=== PATIENT | female | born 1995 | race Hispanic/Latino ===

== ENCOUNTER 2019-10-01 05:45 | Day surgery (SDC) | payer BC ==
[~2019-10-01] VITALS: Ht 154.9 cm; Wt 74.4 kg
[2019-10-01] MEDS ORDERED: TYLENOL EXTRA500 MG PO (09:10)
[2019-10-01] MEDS ORDERED: IBUPROFEN600 MG PO (09:10)
[2019-10-01] MEDS ORDERED: OXYCODON-ACETA1 EAC2 PO (09:10)
[2019-10-01] MEDS ORDERED: ZOFRAN4 MG PO (09:11)
--- NOTE | 2019-10-02 09:14 | OR ---
[facility] [address], [place] [address] Signed DATE OF OPERATION: 10/01/2019 SURGEON: Latosha Gruber MD PREOPERATIVE DIAGNOSES: 1. Chronic acalculous cholecystitis (CCK HIDA 0% ejection fraction with symptoms. 2. Benign-appearing liver lesions. POSTOPERATIVE DIAGNOSES: 1. Chronic inflammation of gallbladder with cholesterolosis and adherent cholesterol polyp. 2. No visible lesion of liver to allow for biopsy. PROCEDURE: 1. Laparoscopic cholecystectomy with intraoperative cholangiogram. 2. Surgeon-directed fluoroscopy. ANESTHESIA: General endotracheal, Latosha Ruiz CRNA and local 10 mL of 0.25% Marcaine with epinephrine. INDICATION: This 23-year-old woman is a patient of LILLIAN Killian in [place], [place]. The patient lives in [place], [place]. She was having problems of persistent nausea and decreased appetite and liver enzymes are somewhat elevated on September 03, 2019. She underwent an MRI of the abdomen following an ultrasound which showed no sign of gallstones in the gallbladder. The MRI demonstrated several liver lesions, which were not consistent with hemangioma. The patient used control pills only briefly at age 17 and is not on control pills now. The possibility of hepatic adenoma or other benign liver lesion has been considered. She has no prior history of cancer. Her symptoms are most likely related to her gallbladder and a CCK-HIDA test showed 0% ejection fraction with reproduction of her symptoms. The liver lesions are likely benign, but of uncertain etiology. She is admitted at this time to undergo laparoscopy for cholecystectomy as well as laparoscopic liver biopsy as able. The risks of bleeding, infection, bile duct injury, need for open procedure and other unforeseen complications were reviewed with her and her in detail. They understand, wished to proceed. FINDINGS: Electronically Signed By: LATOSHA GRUBER MD 10/02/19 0914 PATIENT NAME: ARA AMAYA OPERATIVE REPORT DATE OF : [birth year] REPORT #: [id number] PHYSICIAN: LATOSHA GRUBER MD PCP: KEARA MCGRATH PA-C REPORT IS CONFIDENTIAL AND NOT TO BE RELEASED WITHOUT AUTHORIZATION [facility] [address], [place] [address] Signed The liver had fatty infiltration, but no discrete lesion that I could identify in the right lobe of the liver as I had anticipated. A small subcapsular hematoma was noted with manipulation of the liver. Photographs were taken of that. The gallbladder itself externally appeared normal, but upon opening showed profound cholesterolosis with adherent high cholesterol polyp (not adherent gallstone). Cholangiogram was normal. DESCRIPTION OF PROCEDURE: The patient was brought to the operating room, given a general endotracheal anesthetic per COVID-19 protocol. Preoperative antibiotic Ancef was given. Sequential compression device stockings used and heparin subcutaneously administered. The abdomen was prepared with a chlorhexidine solution and draped sterilely. An infraumbilical incision was made and using an open Darren cannula technique, pneumoperitoneum was achieved to level 14 mmHg of with carbon dioxide gas. Intraabdominal inspection showed no sign of ascites or carcinomatosis. The liver had a blunted edge. The gallbladder had a relatively normal appearance. Three additional trocars were placed in usual configuration in the subxiphoid, right midclavicular, and right anterior axillary line. Various manipulations were undertaken in the right lobe of the liver anticipating liver biopsy, however, no discrete lesion could be identified. Further manipulation in the inferior aspect of the right lobe in particular again showed no visible lesion. Gentle manipulation with the suction device did not discern any subsurface lesion of note, therefore, biopsy could not be obtained at this point. Attention was turned to cholecystectomy. The gallbladder was elevated cephalad and retracted laterally and using blunt and electrocautery dissection, the triangle of Calot was dissected free. She did appear to have edematous tissues in the area of the gallbladder and infundibulum. Once the cystic duct was well identified with lateral retraction of the gallbladder, clips were applied across gallbladder cystic duct junction and a transverse choledochotomy made in the cystic duct. Clear bile was noted. Using the Erwin type cholangiocatheter, intraoperative cholangiography was undertaken showing free flow of contrast in the biliary tree with prompt emptying into the duodenum, conventional biliary anatomy was noted. The catheter was removed and the cystic duct was triply clipped and divided and the gallbladder dissected free in a retrograde fashion. Entry to the gallbladder allowed for spillage of a small amount of clear bile. The gallbladder was placed in an endobag and extracted through the infraumbilical port site without problem. The gallbladder was opened on the back table and found to have significant cholesterolosis and chronic inflammation and at least one adherent cholesterol polyp/stone. There was no sign of neoplasm. Irrigation was undertaken in subhepatic space and over the capsule of the liver. Reinspection was once again undertaken anticipating the possibility of a liver biopsy, however, there was no visible lesion to biopsy. A small capsular hematoma may be 2 cm in size was noted, which was non-expanding and not visible on previous manipulation of the liver and therefore not biopsied. A 5 mm 30-degree scope was passed through a right-sided trocar Electronically Signed By: LATOSHA GRUBER MD 10/02/19 0914 PATIENT NAME: ARA AMAYA SILVERIO OPERATIVE REPORT DATE OF : [birth year] REPORT #: [id number] PHYSICIAN: LATOSHA GRUBER MD PCP: KEARA MCGRATH PA-C REPORT IS CONFIDENTIAL AND NOT TO BE RELEASED WITHOUT AUTHORIZATION [facility] [address], [place] [address] Signed to better visualize the right lateral aspect of the liver, but again no sign of lesion could be identified. On that basis, liver biopsy could not be undertaken at least from a laparoscopic perspective. The excess irrigation fluid was suctioned free. The trocars were removed under direct visualization showing no sign of bleeding. The infraumbilical fascial incision was reapproximated with interrupted 0 Vicryl suture in a running 2-0 PDS suture. The skin was closed with interrupted 3-0 Vicryl after injection of 10 mL of 0.25% Marcaine with epinephrine. Steri-Strips were applied after skin closure. The patient was ultimately extubated and per protocol, transported from the operating room 14 minutes after extubation. Sponge, needle, and instrument counts reported as correct x3. Blood loss was minimal. MD PAMELA Daly/MARIAN /[id number] cc: LILLIAN Killian Copies: ~ Electronically Signed By: LATOSHA GRUBER MD 10/02/19 0914 PATIENT NAME: ARA AMAYA OPERATIVE REPORT DATE OF : [birth year] REPORT #: [id number] PHYSICIAN: LATOSHA GRUBER MD PCP: KEARA MCGRATH PA-C REPORT IS CONFIDENTIAL AND NOT TO BE RELEASED WITHOUT AUTHORIZATION
--- NOTE | 2019-10-02 13:15 | PATH ---
[facility] [address] [place], [place] [address] Signed SPECIMEN(S): A GALLBLADDER SPECIMEN SOURCE: A. GALLBLADDER CLINICAL HISTORY: Steatosis of liver; liver mass; RUQ pain/chronic cholecystitis. FINAL PATHOLOGIC DIAGNOSIS: Gallbladder, cholecystectomy: - Chronic cholecystitis and cholesterolosis. DDF:emb:C2NR MICROSCOPIC EXAMINATION: Histologic sections of all submitted blocks are examined by light microscopy. These findings, together with the gross examination, support the pathologic diagnosis. GROSS DESCRIPTION: The specimen, labeled "IT, A," and designated on the requisition "gallbladder," is received in formalin and consists of Specimen: Previously opened gallbladder. Dimensions: 6.2 x 2.3 x 1.3 cm. Serosa: Smooth and violaceous. Cystic Duct: Unobstructed. Calculi: Absent. Mucosa: Pale yellow-green and velvety with yellow flecking. Wall thickness: Up to 0.3 cm. Lymph node: No pericystic lymph nodes are grossly identified. Additional: None. Fractionating Still Operator sections are submitted in cassette (A1). AT (under the direct supervision of a pathologist) The Gross Description was prepared using a voice recognition system. The report was reviewed for accuracy; however, sound-alike word errors, addition and/or deletions may occur. If there is any question about this report, please contact Client Services. PERFORMING LABORATORY: The technical component was performed by [email or web address], [address] [place] [id number] (Technical Trainer: Merari Xie MD; CLIA# [id number]). Professional interpretation was performed by PATIENT NAME: ARA AMAYA PATHOLOGY DATE OF : [birth year] REPORT #: [id number] PHYSICIAN: [facility] PCP: KEARA MCGRATH PA-C REPORT IS CONFIDENTIAL AND NOT TO BE RELEASED WITHOUT AUTHORIZATION [facility] [address] [place], [place] [address] Signed [facility], [facility], [address] [facility] [address], [place] [address] (CLIA# [id number]). Diagnostician: Anton Wilder DO Pathologist Electronically Signed 10/02/2019 Copies: ~ PATIENT NAME: ARA AMAYA PATHOLOGY DATE OF : [birth year] REPORT #: [id number] PHYSICIAN: [facility] PCP: KEARA MCGRATH PA-C REPORT IS CONFIDENTIAL AND NOT TO BE RELEASED WITHOUT AUTHORIZATION
== END 2019-10-01 11:55 | disposition home or self-care (01) ==
LOC: DS 05:45
PROVIDERS: Surgery
PROC: BF13YZZ Fluoroscopy of Gallbladder and Bile Ducts using Other Contrast (ICD-10-PCS; 2019-10-01)
PROC: 0FT44ZZ Resection of Gallbladder, Percutaneous Endoscopic Approach (ICD-10-PCS; principal; 2019-10-01 06:45)
DX: K81.1 Chronic cholecystitis (principal); K76.0 Fatty (change of) liver, not elsewhere classified; E66.3 Overweight; R16.0 Hepatomegaly, not elsewhere classified; Z88.2 Allergy status to sulfonamides; Z88.0 Allergy status to penicillin; Z88.8 Allergy status to other drugs, medicaments and biological substances; Z84.89 Family history of other specified conditions; Z68.30 Body mass index [BMI] 30.0-30.9, adult
CPT/HCPCS: 00790; 74300; J0330; J0690; J1100; J1644; J1790; J1885; J2250; J2405; J2704; J2765; J3010; J7121; Q9967

== ENCOUNTER 2020-03-17 23:35 | Emergency (ER) | payer BC, OTHER ==
[~2020-03-17] VITALS: Ht 154.9 cm; Wt 74.4 kg
--- OUTSIDE RECORDS SUMMARY | ~2020-03-17 | XMS | Clinical Summary ---
Demographics + + + | Address | [address] | | | [place] [address] | + + + | Home Phone | | + + + | Preferred Language | Unknown | + + + | Marital Status | | + + + | Advent Affiliation | Unknown | + + + | Race | White | + + + | Ethnic Group | Unknown | + + + Author + + + | Author | [facility] | | | and [place] | + + + | Organization | [facility] | | | and [place] | + + + | Address | Unknown | + + + | Phone | Unavailable | + + + Support + + +---------+ + | Name | Relationship | Address | Phone | + + +---------+ + | Sulaiman Manjarrez | ECON | Unknown | | + + +---------+ + Care Team Providers + +------+ + | Care Drapery Hemmer Automatic Name | Role | Phone | + +------+ + | Suzan Courtney PA-C | PCP | | + +------+ + Allergies + + + + + + | Active Allergy | Reactions | Severity | Noted | Comments | | | | | Date | | + + + + + + | Amoxicillin | Hives, Shortness Of | High | 09/23/19 | Fatal | | | Breath | | 20 | | + + + + + + | Sulfa Antibiotics | Other (See Comments) | | 09/23/19 | Reaction: Hives | | | | | 20 | | + + + + + + Medications Not on file Active Problems Not on file Family History + + +------+ + | Medical History | Relation | Name | Comments | + + +------+ + | No known problems | Father | | | + + +------+ + | No known problems | Maternal | | | | | Grandfath | | | | | er | | | + + +------+ + | No known problems | Maternal | | | | | Grandmoth | | | | | er | | | + + +------+ + | High blood pressure | Mother | | | + + +------+ + | Hearing loss | Paternal | | | | | Grandfath | | | | | er | | | + + +------+ + | Other (see comment) | Paternal | | Bone issues | | | Grandfath | | | | | er | | | + + +------+ + | Heart disease | Paternal | | | | | Grandmoth | | | | | er | | | + + +------+ + | Hypertension | Paternal | | | | | Grandmoth | | | | | er | | | + + +------+ + | Breast cancer | Neg Hx | | | + + +------+ + | Colon cancer | Neg Hx | | | + + +------+ + | Ovarian cancer | Neg Hx | | | + + +------+ + + +------+--------+ + | Relation | Name | Status | Comments | + +------+--------+ + | Father | | | | + +------+--------+ + | Maternal Grandfather | | | | + +------+--------+ + | Maternal Grandmother | | | | + +------+--------+ + | Mother | | | | + +------+--------+ + | Paternal Grandfather | | | | + +------+--------+ + | Paternal Grandmother | | | | + +------+--------+ + Social History + +-------+ +--------+------+ | Tobacco Use | Types | Packs/Day | Years | Date | | | | | Used | | + +-------+ +--------+------+ | Never Smoker | | | | | + +-------+ +--------+------+ + +---+---+---+ | Smokeless Tobacco: | | | | | Never Used | | | | + +---+---+---+ + + +---------+ + | Alcohol Use | Drinks/Week | oz/Week | Comments | + + +---------+ + | Yes | | | | + + +---------+ + + + + | Sex Assigned at | Date Recorded | | | | + + + | Not on file | | + + + Last Filed Vital Signs + + + + + | Vital Sign | Reading | Time Taken | Comments | + + + + + | Blood Pressure | - | - | | + + + + + | Pulse | - | - | | + + + + + | Temperature | - | - | | + + + + + | Respiratory Rate | - | - | | + + + + + | Oxygen Saturation | - | - | | + + + + + | Inhaled Oxygen | - | - | | | Concentration | | | | + + + + + | Weight | 65.8 kg (145 lb) | 03/02/2018 6:36 PM | | | | | PDT | | + + + + + | Height | - | - | | + + + + + | Body Mass Index | - | - | | + + + + + Plan of Treatment + + + + + | Health Maintenance | Due Date | Last | Comments | | | | Done | | + + + + + | Cervical Cancer | | | | | Screening (Pap) | 8 | | | + + + + + | Vaccine: | | 07/09/19 | | | Dtap/Tdap/Td (7 - | 0 | 10, | | | Td) | | 01/11/20 | | | | | 02, | | | | | 03/30/19 | | | | | 98, | | | | | Addition | | | | | al | | | | | history | | | | | exists | | + + + + + | Vaccine: Influenza | | 03/06/20 | | | (#1) | 0 | 19, | | | | | 04/26/20 | | | | | 18, | | | | | 03/21/20 | | | | | 17 | | + + + + + | Vaccine: HPV | Completed | 03/21/20 | | | | | 17, | | | | | 07/18/19 | | | | | 13, | | | | | 11/22/19 | | | | | 12 | | + + + + + Results Not on filefrom Last 3 Months Insurance +---------+--------+ +--------+ +---------+------+ | Payer | Benefi | Subscriber | Effect | Phone | Address | Type | | | t Plan | ID | kevin | | | | | | / | | Dates | | | | | | Group | | | | | | +---------+--------+ +--------+ +---------+------+ | [employer] | REGENC | [id number] | | [phone] | | PPO | | | E BCBS | [id number] | 020-Pr | 8 | | | | | [place] | | esent | | | | | | PPO | | | | | | +---------+--------+ +--------+ +---------+------+ + +--------+ +--------+ + + | Guarantor Name | Accoun | Relation to | Date | Phone | Billing Address | | | t Type | Patient | of | | | | | | | | | | + +--------+ +--------+ + + | Fabiola Manjarrez | Person | Self | [birth year] | [address] | | | al/Fam | | 1995 | [phone] | [place] [address] | | | minor | | | 1 (Home) | | + +--------+ +--------+ + + Advance Directives + + + + + | Type | Date Recorded | Patient | Explanation | | | | Hazardous Substances Engineer | | + + + + + | Power of | | | | | Nursing Service Director | | | | + + + + + | Advance | | | | | Directive | | | | + + + + +"
--- OUTSIDE RECORDS SUMMARY | ~2020-03-17 | XMS | Encounter Summary ---
Demographics + + + | Address | [address] | | | [place] [address] | + + + | Home Phone | | + + + | Preferred Language | Unknown | + + + | Marital Status | | + + + | Lutheran Affiliation | Unknown | + + + | Race | White | + + + | Ethnic Group | Unknown | + + + Author + + + | Author | [facility] | | | and [place] | + + + | Organization | [facility] | | | and [...] Team Providers + +------+ + | Care Pharmacy Cashier Name | Role | Phone | + +------+ + PCP | Unavailable | + +------+ + Encounter Details +--------+ + + + + | Date | Type | Department | Care Team | Description | +--------+ + + + + | 02/28/ | Hospital | [facility] | Conversion | Hyperprolactinemia | | 2018 | Encounter | [facility] | Transaction, | ([facility]) | | | | [address] | Provider Unknown | | | | | [place], [place] | [phone] | | | | | [address] | | | | | | [phone] | | | +--------+ + + + + Social History + +-------+ +--------+------+ | Tobacco Use | Types | Packs/Day | Years | Date | | | | | Used | | + +-------+ +--------+------+ | Never Assessed | | | | | + +-------+ +--------+------+ + + + | Sex Assigned at | Date Recorded | | | | + + + | Not on file | | + + + documented as of this encounter Last Filed Vital Signs + + + [...] Weight | 65.8 kg (145 lb) | 02/28/2018 6:40 AM | | | | | PDT | | + + + + + | Height | - | - | | + + + + + | Body Mass Index | - | - | | + + + + + documented in this encounter Progress Notes Conversion Transaction, Provider Unknown - 02/28/2018 7:07 AM PDTFormatting of this note m ight be different from the original. Progress Notes by RT Jenna at 02/28/18706 Author: RT Jenna Service: (none) Author Type: Technologist Filed: 02/28/18708 Date of Service: 02/28/18706 Status: Signed Svp Of Digital: RT Jenna (Technologist) Pt not sure if she's . Pt to have serum test before doing exam, per Dr. Perales. Pt instructed to bring a copy of the results to next appt. KR 02/28/2018 docume nted in this encounter Plan of Treatment Not on filedocumented as of this encounter Procedures + +--------+ + + + | Procedure Name | Priori | Date/Time | Associated Diagnosis | Comments | | | ty | | | | + +--------+ + + + | MRI PITUITARY W WO | Routin | 03/02/2018 | | Results for this | | CONTRAST | e | 7:09 PM | | procedure are in the | | | | PDT | | results section. | + +--------+ + + + documented in this encounter Results MRI Pituitary w wo Contrast (03/02/2018 7:09 PM PDT) + + | Specimen | + + | | + + + + + | Impressions | Performed At | + + + | 1. Normal MRI examination of brain and pituitary gland. 2. No | | | evidence of a pituitary microadenoma or macroadenoma to explain | | | hyperprolactinemia. Electronically signed by Nathanael Mayo DO on | | | 03/02/2018 9:53 PM | | + + + + + + | Narrative | Performed At | + + + | [facility] MRI PITUITARY W WO CONTRAST 03/02/2018 7:09 PM | | | HISTORY: 22 years. Female. Hyperprolactinemia. TECHNIQUE: | | | Imaging was performed on a 1.5 Birdie MRI system. Multiplanar | | | sequences were acquired according to a standard department protocol | | | with and without contrast. Contrast: Gadavist. Dose: 6 mL. | | | COMPARISON: None. FINDINGS: The brain parenchyma demonstrates | | | normal architectural features and signal intensity on all sequences. | | | Following contrast administration, no abnormal enhancement is seen | | | within the brain parenchyma, leptomeninges or dura. The | | | ventricles, cisterns and sulci are normal in size and configuration. | | | No extraaxial fluid collections are noted. The midline structures | | | including the corpus callosum, marvin, cerebellar vermis and pineal | | | gland are normal. High-resolution imaging of the pituitary | | | including dynamic postcontrast sequences demonstrates a normal size of | | | the pituitary gland which measures 10.7 x 12.4 x 7.9 mm in size. | | | The signal intensity of the pituitary gland is normal. No mass is | | | seen in the sella or suprasellar regions. The pituitary | | | infundibulum is midline. A normal T1 hyperintense neurohypophysis is | | | seen. Following contrast administration, no areas of | | | hypo-enhancement are seen within the pituitary to suggest the presence | | | of a microadenoma. The flow voids of the internal carotid | | | arteries within the cavernous sinuses are normal. The optic chiasm | | | is normal. No masses are seen in the region of the | | | cerebellopontine angles or internal auditory canals. The orbits and | | | their contents are normal. The paranasal sinuses are well aerated. | | | No air-fluid levels or mucosal thickening is noted. No fluid seen | | | in the mastoids. The osseous structures of the calvaria and upper | | | cervical spine demonstrate normal bone marrow signal intensity. The | | | soft tissues of the oropharynx and upper neck appear normal on the | | | sagittal sequences. The intracranial arteries demonstrate normal | | | flow voids on the T2 sequence. No large aneurysm is noted. The | | | dural venous sinuses also demonstrate normal flow-voids. | | + + + + + | Procedure Note | + + | Mark, Rad Conversion - 01/09/2019 11:36 AM PDT IRIS Y KATJAMRI PITUITARY W WO | | EUOXHMDE19/5/2018 7:09 PM HISTORY:22 years. Female. Hyperprolactinemia. | | TECHNIQUE:Imaging was performed on a 1.5 Birdie MRI system. Multiplanar sequences were | | acquired according to a standard department protocol with and without contrast.Contrast: | | Gadavist. Dose: 6 mL. COMPARISON:None. FINDINGS:The brain parenchyma demonstrates | | normal architectural features and signal intensity on all sequences. Following contrast | | administration, no abnormal enhancement is seen within the brain parenchyma, | | leptomeninges or dura. The ventricles, cisterns and sulci are normal in size and | | configuration. No extraaxial fluid collections are noted. The midline structures | | including the corpus callosum, marvin, cerebellar vermis and pineal gland are normal. | | High-resolution imaging of the pituitary including dynamic postcontrast sequences | | demonstrates a normal size of the pituitary gland which measures 10.7 x 12.4 x 7.9 mm in | | size. The signal intensity of the pituitary gland is normal. No mass is seen in the | | sella or suprasellar regions. The pituitary infundibulum is midline. A normal T1 | | hyperintense neurohypophysis is seen. Following contrast administration, no areas of | | hypo-enhancement are seen within the pituitary to suggest the presence of a | | microadenoma. The flow voids of the internal carotid arteries within the cavernous | | sinuses are normal. The optic chiasm is normal. No masses are seen in the region of the | | cerebellopontine angles or internal auditory canals. The orbits and their contents are | | normal. The paranasal sinuses are well aerated. No air-fluid levels or mucosal | | thickening is noted. No fluid seen in the mastoids. The osseous structures of the | | calvaria and upper cervical spine demonstrate normal bone marrow signal intensity. The | | soft tissues of the oropharynx and upper neck appear normal on the sagittal sequences. | | The intracranial arteries demonstrate normal flow voids on the T2 sequence. No large | | aneurysm is noted. The dural venous sinuses also demonstrate normal flow-voids. | | IMPRESSION: 1. Normal MRI examination of brain and pituitary gland.2. No evidence of a | | pituitary microadenoma or macroadenoma to explain hyperprolactinemia. Electronically | | signed by Nathanael Mayo DO on 03/02/2018 9:53 PM | | | |IMPRESSION: | |1. Normal MRI examination of brain and pituitary gland. | |2. No evidence of a pituitary microadenoma or macroadenoma to explain hyperprolactinemia. | | | | | + + documented in this encounter Visit Diagnoses + + | Diagnosis | + + | Hyperprolactinemia (HCC) Other and unspecified anterior pituitary hyperfunction | + + documented in this encounter"
--- OUTSIDE RECORDS SUMMARY | ~2020-03-17 | XMS | Encounter Summary ---
Demographics + + + | Address | [address] | | | [place] [address] | + + + | Home Phone | | + + + | Preferred Language | Unknown | + + + | Marital Status | | + + + | Alevism Affiliation | Unknown | + + + | Race | White | + + + | Ethnic Group | Unknown | + + + Author + + + | Author | [facility] | | | and [place] | + + + | Organization | [facility] | | | and [...] Team Providers + +------+ + | Care Tip Mender Name | Role | Phone | + +------+ + PCP | Unavailable | + +------+ + Encounter Details +--------+ + + + + | Date | Type | Department | Care Team | Description | +--------+ + + + + | 03/02/ | Hospital | [facility] | Conversion | | | 2018 | Encounter | [facility] | Transaction, | | | | | [address] | Provider Unknown | | | | | [place] | | | | | | [address] | (Fax) | | | | | [phone] | Merari Nieves MD | | | | | | [address] | | | | | | [place] [address] | | | | | | [phone] | | | | | | | | +--------+ + + + [...] + + + documented in this encounter Plan of Treatment Not on filedocumented as of this encounter Visit Diagnoses Not on filedocumented in this encounter"
--- OUTSIDE RECORDS SUMMARY | ~2020-03-17 | XMS | Encounter Summary ---
Demographics + + + | Address | [address] | | | [place] [address] | + + + | Home Phone | | + + + | Preferred Language | Unknown | + + + | Marital Status | | + + + | Anglican Affiliation | Unknown | + + + | Race | White | + + + | Ethnic Group | Unknown | + + + Author + + + | Author | [facility] | | | and [place] | + + + | Organization | [facility] | | | and [...] Team Providers + +------+ + | Care It Operations Specialist Name | Role | Phone | + +------+ + | Suzan Courtney PA-C | PCP | | + +------+ + Encounter Details +--------+ + + + + | Date | Type | Department | Care Team | Description | +--------+ + + + + | 09/18/ | Imaging | [facility] | Provider, | | | 2019 | Exam | [facility] EXTER[facility] | [address] | | | | | [address] | [place] | | | | | [place] | [place] [address] | | | | | [place] [address] | | | | | | [phone] | | | +--------+ + + + [...] + + documented as of this encounter Plan of Treatment Not on filedocumented as of this encounter Procedures + +--------+ + + + | Procedure Name | Priori | Date/Time | Associated Diagnosis | Comments | | | ty | | | | + +--------+ + + + | US ABDOMEN LIMITED | Routin | 08/14/2019 | | Results for this | | | e | 12:00 AM | | procedure are in the | | | | PDT | | results section. | + +--------+ + + + documented in this encounter Results US Abdomen Limited (08/14/2019 12:00 AM PDT) + + | Specimen | + + | | + + + + + | Narrative | Performed At | + + + | External films for comparison only | [facility] | | | | | No results will be in the chart. | | + + + + +---------+ + + | Performing | Address | City/State/Zipcode | Phone Number | | Organization | | | | + +---------+ + + | [facility] | | | | + +---------+ + + documented in this encounter Visit Diagnoses Not on filedocumented in this encounter"
--- OUTSIDE RECORDS SUMMARY | ~2020-03-17 | XMS | Encounter Summary ---
Demographics + + + | Address | [address] | | | [place] [address] | + + + | Home Phone | | + + + | Preferred Language | Unknown | + + + | Marital Status | | + + + | Taoist Affiliation | Unknown | + + + | Race | White | + + + | Ethnic Group | Unknown | + + + Author + + + | Author | [facility] | | | and [place] | + + + | Organization | [facility] | | | [...] Team Providers + +------+ + | Care Foreman Or Supervisor And Operator Name | Role | Phone | + +------+ + | Suzan Courtney PA-C | PCP | | + +------+ + Encounter Details +--------+ + + + + | Date | Type | Department | Care Team | Description | +--------+ + + + + | 09/17/ | Imaging | [facility] | Provider, | | | 2019 | Exam | MED CTR EXTERNAL | [address] | | | | | [address] | [place] | | | | | [place] | [place] [address] | | | | | [place] [address] | | | | | | [phone] | | | +--------+ + + + [...] + +--------+ + + + | MRI ABDOMEN W WO | Routin | 09/03/2019 | | Results for this | | CONTRAST | e | 12:00 AM | | procedure are in the | | | | PDT | | results section. | + +--------+ + + + documented in this encounter Results MRI Abdomen w wo Contrast (09/03/2019 12:00 AM PDT) + + | Specimen [...]
--- OUTSIDE RECORDS SUMMARY | ~2020-03-17 | XMS | Encounter Summary ---
Demographics + + + | Address | [address] | | | [place] [address] | + + + | Home Phone | | + + + | Preferred Language | Unknown | + + + | Marital Status | | + + + | Pentecostalism Affiliation | Unknown | + + + | Race | White | + + + | Ethnic Group | Unknown | + + + Author + + + | Author | [facility] | | | and [place] | + + + | Organization | [facility] | | | [...] Team Providers + +------+ + | Care Insurance Verification Rep Name | Role | Phone | + +------+ + | Suzan Courtney PA-C | PCP | | + +------+ + Encounter Details +--------+ + + + + | Date | Type | Department | Care Team | Description | +--------+ + + + + | 09/22/ | Abstract | [facility] | [place], | | | 2019 | | GASTROENTEROLOGY | [address] | | | | | [address] [place] | [place] | | | | | [address] [place] | [place] [address] | | | | | [address] | | | | | | [phone] | | | +--------+ + + + [...] | + +--------+ + + + | EXTERNAL LAB: | Routin | 08/22/2019 | | Results for this | | FERRITIN | e | | | procedure are in the | | | | | | results section. | + +--------+ + + + | EXTERNAL LAB: | Routin | 08/22/2019 | | Results for this | | TRIGLYCERIDES | e | | | procedure are in the | | | | | | results section. | + +--------+ + + + | EXTERNAL LAB: | Routin | 08/22/2019 | | Results for this | | CHOLESTEROL, HDL | e | | | procedure are in the | | | | | | results section. | + +--------+ + + + | EXTERNAL LAB: | Routin | 08/22/2019 | | Results for this | | CHOLESTEROL, TOTAL | e | | | procedure are in the | | | | | | results section. | + +--------+ + + + | EXTERNAL LAB: | Routin | 08/22/2019 | | Results for this | | CHOLESTEROL, LDL | e | | | procedure are in the | | | | | | results section. | + +--------+ + + + | LIPID PANEL | Routin | 08/22/2019 | | Results for this | | | e | | | procedure are in the | | | | | | results section. | + +--------+ + + + | EXTERNAL LAB: BUN | Routin | 08/08/2019 | | Results for this | | | e | | | procedure are in the | | | | | | results section. | + +--------+ + + + | EXTERNAL LAB: | Routin | 08/08/2019 | | Results for this | | GLUCOSE | e | | | procedure are in the | | | | | | results section. | + +--------+ + + + | EXTERNAL LAB: ALT | Routin | 08/08/2019 | | Results for this | | | e | | | procedure are in the | | | | | | results section. | + +--------+ + + + | EXTERNAL LAB: AST | Routin | 08/08/2019 | | Results for this | | | e | | | procedure are in the | | | | | | results section. | + +--------+ + + + | EXTERNAL LAB: | Routin | 08/08/2019 | | Results for this | | ALKALINE PHOSPHATASE | e | | | procedure are in the | | | | | | results section. | + +--------+ + + + | EXTERNAL LAB: | Routin | 08/08/2019 | | Results for this | | BILIRUBIN, TOTAL | e | | | procedure are in the | | | | | | results section. | + +--------+ + + + | EXTERNAL LAB: | Routin | 08/08/2019 | | Results for this | | ALBUMIN | e | | | procedure are in the | | | | | | results section. | + +--------+ + + + | EXTERNAL LAB: | Routin | 08/08/2019 | | Results for this | | PROTEIN, TOTAL | e | | | procedure are in the | | | | | | results section. | + +--------+ + + + | EXTERNAL LAB: | Routin | 08/08/2019 | | Results for this | | CALCIUM | e | | | procedure are in the | | | | | | results section. | + +--------+ + + + | EXTERNAL LAB: CARBON | Routin | 08/08/2019 | | Results for this | | DIOXIDE | e | | | procedure are in the | | | | | | results section. | + +--------+ + + + | EXTERNAL LAB: | Routin | 08/08/2019 | | Results for this | | CHLORIDE | e | | | procedure are in the | | | | | | results section. | + +--------+ + + + | EXTERNAL LAB: | Routin | 08/08/2019 | | Results for this | | POTASSIUM | e | | | procedure are in the | | | | | | results section. | + +--------+ + + + | EXTERNAL LAB: SODIUM | Routin | 08/08/2019 | | Results for this | | | e | | | procedure are in the | | | | | | results section. | + +--------+ + + + | EXTERNAL LAB: CBC | Routin | 08/08/2019 | | Results for this | | | e | | | procedure are in the | | | | | | results section. | + +--------+ + + + | EXTERNAL LAB: TSH | Routin | 08/08/2019 | | Results for this | | | e | | | procedure are in the | | | | | | results section. | + +--------+ + + + | EXTERNAL LAB: EGFR | Routin | 08/08/2019 | | Results for this | | | e | | | procedure are in the | | | | | | results section. | + +--------+ + + + | EXTERNAL LAB: | Routin | 08/08/2019 | | Results for this | | CREATININE | e | | | procedure are in the | | | | | | results section. | + +--------+ + + + | PROLACTIN | Routin | 08/08/2019 | | Results for this | | | e | | | procedure are in the | | | | | | results section. | + +--------+ + + + | CBC WITH | Routin | 08/08/2019 | | Results for this | | DIFFERENTIAL | e | | | procedure are in the | | | | | | results section. | + +--------+ + + + | HEPATIC FUNCTION | Routin | 08/08/2019 | | Results for this | | PANEL | e | | | procedure are in the | | | | | | results section. | + +--------+ + + + | COMPREHENSIVE | Routin | 08/08/2019 | | Results for this | | METABOLIC PANEL | e | | | procedure are in the | | | | | | results section. | + +--------+ + + + documented in this encounter Results External Lab: Ferritin (08/22/2019) + +-------+ + + + | Component | Value | Ref Range | Performed | Pathologist | | | | | At | Signature | + +-------+ + + + | Ferritin, | 138.8 | 13 - 150 | EXTERNAL | | | External | | | LAB | | + +-------+ + + + + +---------+ + + | Performing | Address | City/State/Zipcode | Phone Number | | Organization | | | | + +---------+ + + | EXTERNAL LAB | | | | + +---------+ + + Lipid Panel (08/22/2019) + +-------+ + + + | Component | Value | Ref Range | Performed | Pathologist | | | | | At | Signature | + +-------+ + + + | VLDL | 17 | 4 - 40 mg/dL | | | | Cholesterol | | | | | | [place] | | | | | + +-------+ + + + | Chol/HDL | 3.6 | 0.0 - 4.4 Ratio | | | | Ratio | | | | | + +-------+ + + + | Non HDL | 129 | 0 - 130 mg/dL | | | | Chol. | | | | | | (LDL+VLDL) | | | | | + +-------+ + + + + + | Specimen | + + | Blood | + + External Lab: Triglycerides (08/22/2019) + +-------+ + + + | Component | Value | Ref Range | Performed | Pathologist | | | | | At | Signature | + +-------+ + + + | Triglycerid | 85 | 30 - 150 | EXTERNAL | | | es, | | | LAB | | | External | | | | | + +-------+ + + + + + | Specimen | + + | Blood | + + + +---------+ + + | Performing | Address | City/State/Zipcode | Phone Number | | Organization | | | | + +---------+ + + | EXTERNAL LAB | | | | + +---------+ + + External Lab: Cholesterol, HDL (08/22/2019) + +-------+ + + + | Component | Value | Ref Range | Performed | Pathologist | | | | | At | Signature | + +-------+ + + + | HDL | 49.1 | 40 - 99,999 | EXTERNAL | | | Cholesterol | | mg/dl | LAB | | | , External | | | | | + +-------+ + + + + + | Specimen | + + | Blood | + + + +---------+ + + | Performing | Address | City/State/Zipcode | Phone Number | | Organization | | | | + +---------+ + + | EXTERNAL LAB | | | | + +---------+ + + External Lab: Cholesterol, Total (08/22/2019) + +-------+ + + + | Component | Value | Ref Range | Performed | Pathologist | | | | | At | Signature | + +-------+ + + + | Cholesterol | 178 | 0 - 200 mg/dl | EXTERNAL | | | , Total, | | | LAB | | | External | | | | | + +-------+ + + + + + | Specimen | + + | Blood | + + + +---------+ + + | Performing | Address | City/State/Zipcode | Phone Number | | Organization | | | | + +---------+ + + | EXTERNAL LAB | | | | + +---------+ + + External Lab: Cholesterol, LDL (08/22/2019) + +---------+ + + + | Component | Value | Ref Range | Performed | Pathologist | | | | | At | Signature | + +---------+ + + + | LDL | 112 (A) | 0 - 100 | EXTERNAL | | | Cholesterol | | | LAB | | | , Direct, | | | | | | External | | | | | + +---------+ + + + + + | Specimen | + + | Blood | + + + +---------+ + + | Performing | Address | City/State/Zipcode | Phone Number | | Organization | | | | + +---------+ + + | EXTERNAL LAB | | | | + +---------+ + + Hepatic Function Panel (08/08/2019) + + + + + + | Component | Value | Ref Range | Performed | Pathologist | | | | | At | Signature | + + + + + + | Hepatitis A | Negative | | | | | IGM | | | | | + + + + + + | Hepatitis B | Negative | | | | | Surface | | | | | | Ag, | | | | | | External | | | | | + + + + + + | HEP B | Negative | | | | | SURFACE | | | | | | ANTIBODY | | | | | + + + + + + | Hepatitis B | Non Reactive | Non Reactive | | | | Core Ab, | | | | | | Total | | | | | + + + + + + | HCV Ab | Negative | | | | + + + + + + + + | Specimen | + + | Blood | + + Prolactin (08/08/2019) + +-------+ + + + | Component | Value | Ref Range | Performed | Pathologist | | | | | At | Signature | + +-------+ + + + | Prolactin | 22.16 | 4.79 - 23.3 | | | | | | ng/ml | | | + +-------+ + + + + + | Specimen | + + | Blood | + + External Lab: TSH (08/08/2019) + +-------+ + + + | Component | Value | Ref Range | Performed | Pathologist | | | | | At | Signature | + +-------+ + + + | TSH, | 1.27 | 0.27 - 4.2 | EXTERNAL | | | External | | | LAB | | + +-------+ + + + + + | Specimen | + + | Blood | + + + +---------+ + + | Performing | Address | City/State/Zipcode | Phone Number | | Organization | | | | + +---------+ + + | EXTERNAL LAB | | | | + +---------+ + + Comprehensive Metabolic Panel (08/08/2019) + +-------+ + + + | Component | Value | Ref Range | Performed | Pathologist | | | | | At | Signature | + +-------+ + + + | Anion Gap | 13 | 7 - 21 mmol/L | | | + +-------+ + + + | Bun/Creatin | 15.3 | 6.0 - 28.6 | | | | ine | | Ratio | | | + +-------+ + + + | Globulin | 2.8 | 1.8 - 3.5 g/dl | | | + +-------+ + + + | Albumin/Patricia | 1.6 | 1.1 - 2.4 Ratio | | | | bulin Ratio | | | | | + +-------+ + + + + + | Specimen | + + | Blood | + + External Lab: BUN (08/08/2019) + +-------+ + + + | Component | Value | Ref Range | Performed | Pathologist | | | | | At | Signature | + +-------+ + + + | BUN, | 9 | 6 - 23 | EXTERNAL | | | External | | | LAB | | + +-------+ + + + + +---------+ + + | Performing | Address | City/State/Zipcode | Phone Number | | Organization | | | | + +---------+ + + | EXTERNAL LAB | | | | + +---------+ + + External Lab: Glucose (08/08/2019) + +-------+ + + + | Component | Value | Ref Range | Performed | Pathologist | | | | | At | Signature | + +-------+ + + + | Glucose, | 79 | 70 - 100 | EXTERNAL | | | External | | | LAB | | + +-------+ + + + + +---------+ + + | Performing | Address | City/State/Zipcode | Phone Number | | Organization | | | | + +---------+ + + | EXTERNAL LAB | | | | + +---------+ + + External Lab: ALT (08/08/2019) + +---------+ + + + | Component | Value | Ref Range | Performed | Pathologist | | | | | At | Signature | + +---------+ + + + | ALT, | 189 (A) | 7 - 52 | EXTERNAL | | | External | | | LAB | | + +---------+ + + + + +---------+ + + | Performing | Address | City/State/Zipcode | Phone Number | | Organization | | | | + +---------+ + + | EXTERNAL LAB | | | | + +---------+ + + External Lab: AST (08/08/2019) + +--------+ + + + | Component | Value | Ref Range | Performed | Pathologist | | | | | At | Signature | + +--------+ + + + | AST, | 77 (A) | 13 - 39 | EXTERNAL | | | External | | | LAB | | + +--------+ + + + + +---------+ + + | Performing | Address | City/State/Zipcode | Phone Number | | Organization | | | | + +---------+ + + | EXTERNAL LAB | | | | + +---------+ + + External Lab: Alkaline Phosphatase (08/08/2019) + +-------+ + + + | Component | Value | Ref Range | Performed | Pathologist | | | | | At | Signature | + +-------+ + + + | ALP, | 92 | 31 - 130 | EXTERNAL | | | External | | | LAB | | + +-------+ + + + + +---------+ + + | Performing | Address | City/State/Zipcode | Phone Number | | Organization | | | | + +---------+ + + | EXTERNAL LAB | | | | + +---------+ + + External Lab: Bilirubin, Total (08/08/2019) + +-------+ + + + | Component | Value | Ref Range | Performed | Pathologist | | | | | At | Signature | + +-------+ + + + | Bilirubin, | 0.5 | 0 - 1.2 | EXTERNAL | | | Total, | | | LAB | | | External | | | | | + +-------+ + + + + +---------+ + + | Performing | Address | City/State/Zipcode | Phone Number | | Organization | | | | + +---------+ + + | EXTERNAL LAB | | | | + +---------+ + + External Lab: Albumin (08/08/2019) + +-------+ + + + | Component | Value | Ref Range | Performed | Pathologist | | | | | At | Signature | + +-------+ + + + | Albumin, | 4.5 | 3.5 - 5 | EXTERNAL | | | External | | | LAB | | + +-------+ + + + + +---------+ + + | Performing | Address | City/State/Zipcode | Phone Number | | Organization | | | | + +---------+ + + | EXTERNAL LAB | | | | + +---------+ + + External Lab: Protein, Total (08/08/2019) + +-------+ + + + | Component | Value | Ref Range | Performed | Pathologist | | | | | At | Signature | + +-------+ + + + | Protein, | 7.3 | 6 - 8.3 | EXTERNAL | | | Total, | | | LAB | | | External | | | | | + +-------+ + + + + +---------+ + + | Performing | Address | City/State/Zipcode | Phone Number | | Organization | | | | + +---------+ + + | EXTERNAL LAB | | | | + +---------+ + + External Lab: Calcium (08/08/2019) + +-------+ + + + | Component | Value | Ref Range | Performed | Pathologist | | | | | At | Signature | + +-------+ + + + | Calcium, | 9.7 | 8.5 - 10.3 | EXTERNAL | | | External | | | LAB | | + +-------+ + + + + +---------+ + + | Performing | Address | City/State/Zipcode | Phone Number | | Organization | | | | + +---------+ + + | EXTERNAL LAB | | | | + +---------+ + + External Lab: Carbon Dioxide (08/08/2019) + +-------+ + + + | Component | Value | Ref Range | Performed | Pathologist | | | | | At | Signature | + +-------+ + + + | Carbon | 25 | 19 - 31 | EXTERNAL | | | Dioxide, | | | LAB | | | External | | | | | + +-------+ + + + + +---------+ + + | Performing | Address | City/State/Zipcode | Phone Number | | Organization | | | | + +---------+ + + | EXTERNAL LAB | | | | + +---------+ + + External Lab: Chloride (08/08/2019) + +-------+ + + + | Component | Value | Ref Range | Performed | Pathologist | | | | | At | Signature | + +-------+ + + + | Chloride, | 101 | 95 - 112 | EXTERNAL | | | External | | | LAB | | + +-------+ + + + + +---------+ + + | Performing | Address | City/State/Zipcode | Phone Number | | Organization | | | | + +---------+ + + | EXTERNAL LAB | | | | + +---------+ + + External Lab: Potassium (08/08/2019) + +-------+ + + + | Component | Value | Ref Range | Performed | Pathologist | | | | | At | Signature | + +-------+ + + + | Potassium, | 3.8 | 3.6 - 5.1 | EXTERNAL | | | External | | | LAB | | + +-------+ + + + + +---------+ + + | Performing | Address | City/State/Zipcode | Phone Number | | Organization | | | | + +---------+ + + | EXTERNAL LAB | | | | + +---------+ + + External Lab: Sodium (08/08/2019) + +-------+ + + + | Component | Value | Ref Range | Performed | Pathologist | | | | | At | Signature | + +-------+ + + + | Sodium, | 135 | 132 - 143 | EXTERNAL | | | External | | | LAB | | + +-------+ + + + + +---------+ + + | Performing | Address | City/State/Zipcode | Phone Number | | Organization | | | | + +---------+ + + | EXTERNAL LAB | | | | + +---------+ + + External Lab: eGFR (08/08/2019) + +-------+ + + + | Component | Value | Ref Range | Performed | Pathologist | | | | | At | Signature | + +-------+ + + + | eGFR, | >120 | 60 - 99,999 | EXTERNAL | | | External | | | LAB | | + +-------+ + + + + + | Specimen | + + | Blood | + + + +---------+ + + | Performing | Address | City/State/Zipcode | Phone Number | | Organization | | | | + +---------+ + + | EXTERNAL LAB | | | | + +---------+ + + External Lab: Creatinine (08/08/2019) + + + + + + | Component | Value | Ref Range | Performed | Pathologist | | | | | At | Signature | + + + + + + | Creatinine, | 0.59 (A) | 0.6 - 1.35 | EXTERNAL | | | External | | | LAB | | + + + + + + + + | Specimen | + + | Blood | + + + +---------+ + + | Performing | Address | City/State/Zipcode | Phone Number | | Organization | | | | + +---------+ + + | EXTERNAL LAB | | | | + +---------+ + + CBC with Differential (08/08/2019) + +-------+ + + + | Component | Value | Ref Range | Performed | Pathologist | | | | | At | Signature | + +-------+ + + + | MCH | 30.0 | 27.0 - 33.0 pg | | | + +-------+ + + + | MCHC | 33.0 | 30.0 - 36.0 | | | | | | g/dL | | | + +-------+ + + + | % Basophils | 0.5 | 0.0 - 2.0 % | | | + +-------+ + + + + + | Specimen | + + | Blood | + + External Lab: CBC (08/08/2019) + + + + + + | Component | Value | Ref Range | Performed | Pathologist | | | | | At | Signature | + + + + + + | WBC, | 11.6 (A) | 4.5 - 11 | EXTERNAL | | | External | | | LAB | | + + + + + + | HGB, | 14.5 | 12 - 16 | EXTERNAL | | | External | | | LAB | | + + + + + + | HCT, | 43.4 | 35 - 45 | EXTERNAL | | | External | | | LAB | | + + + + + + | PLT, | 273 | 140 - 440 | EXTERNAL | | | External | | | LAB | | + + + + + + | Neutrophils | 64.6 | 39 - 80 | EXTERNAL | | | %, | | | LAB | | | External | | | | | + + + + + + | Lymphocytes | 28.3 | 24 - 44 | EXTERNAL | | | %, | | | LAB | | | External | | | | | + + + + + + | Monocytes | 5.1 | 0 - 12 | EXTERNAL | | | %, External | | | LAB | | + + + + + + | Eosinophils | 1.5 | 0 - 6 | EXTERNAL | | | %, | | | LAB | | | External | | | | | + + + + + + | RBC, | 4.76 | 3.8 - 5.1 | EXTERNAL | | | External | | | LAB | | + + + + + + | MCV, | 91 | 81 - 99 | EXTERNAL | | | External | | | LAB | | + + + + + + | RDW, | 13.7 | 10.5 - 15 | EXTERNAL | | | External | | | LAB | | + + + + + + + +---------+ + + | Performing | Address | City/State/Zipcode | Phone Number | | Organization | | | | + +---------+ + + | EXTERNAL LAB | | | | + +---------+ + + documented in this encounter Visit Diagnoses Not on filedocumented in this encounter"
[~2020-03-17 23:35] MED LIST: IBUPROFEN600 MG PO; OXYCODON-ACETA1 EAC2 PO; TYLENOL EXTRA500 MG PO; ZOFRAN4 MG PO
[2020-03-17] MEDS ORDERED: PRENA1 CHEW TA1.4 MG PO (23:59)
--- NOTE | 2020-03-19 00:06 | PATH ---
[facility] [address], [place] [address] Signed ORDERING PHYSICIAN: Matthew Garcia MD PATIENT NAME: ARA AMAYA GENDER: F : 1995 Prior History: No cases found. SPECIMEN(S): MOLECULAR PATHOLOGY RESULTS: SARS-CoV-2 Not Detected ADDITIONAL NOTES.: The [place] Fusion SARS-CoV-2 Assay is a multiplex real-time PCR (RT-PCR) in vitro diagnostic test intended for the qualitative detection of RNA from SARS-CoV-2 from individuals who meet COVID-19 clinical and/or epidemiological criteria. In general, SARS-CoV-2 RNA can be detected during the acute phase of infection. Positive results indicate the presence of SARS-CoV-2 RNA. Clinical correlation with patient history and other diagnostic information is necessary to determine patient infection status. Positive results do not rule out bacterial infection or co-infection with other viruses. Negative results do not preclude SARS-CoV-2 infection and should not be used as the sole basis for patient management decisions. Negative results must be combined with other clinical observations, patient history, and epidemiological information. The [place] Fusion SARS-CoV-2 Assay is not yet approved or cleared by the [place] FDA. When there are no FDA-approved or cleared tests available, and other criteria are met, FDA can make tests available under an emergency access mechanism called an Emergency Use Authorization (EUA). The EUA for this test is supported by the Plumber Assistant of Health and Human Service's (HHS's) declaration that circumstances exist to justify the emergency use of in vitro diagnostics for the detection and/or diagnosis of the virus that causes COVID-19. This EUA will remain in effect for the duration of the COVID-19 declaration justifying emergency of IVDs, unless it is terminated or revoked by FDA, after which the test may no longer be used. The [place] Fusion SARS-CoV-2 Assay is for use only under EUA PATIENT NAME: ARA AMAYA PATHOLOGY DATE OF : [birth year] REPORT #: [id number] PHYSICIAN: CHELSEA CHRISTIAN PCP: KEARA MCGRATH PA-C REPORT IS CONFIDENTIAL AND NOT TO BE RELEASED WITHOUT AUTHORIZATION [facility] [address] [place] [id number] Signed in laboratories certified under the Clinical Laboratory Improvement Amendments of 1988 (CLIA) to perform high complexity tests. [email or web address] is certified under CLIA to perform high complexity clinical laboratory testing. PERFORMING LABORATORY.: Molecular testing was performed by [email or web address] [place] [address] (Inpatient Auditor: Sp Pryor D.O.; CLIA#: [id number]) Diagnostician: System Interface Pathologist Electronically Signed 03/18/2020 Copies: ~ PATIENT NAME: ARA AMAYA PATHOLOGY DATE OF : [birth year] REPORT #: [id number] PHYSICIAN: CHELSEA CHRISTIAN PCP: KEARA MCGRATH PA-C REPORT IS CONFIDENTIAL AND NOT TO BE RELEASED WITHOUT AUTHORIZATION
== END 2020-03-18 00:42 | disposition home or self-care (01) ==
LOC: ED 23:35
DX: O99.512 Diseases of the respiratory system complicating pregnancy, second trimester (principal); J98.8 Other specified respiratory disorders; B97.89 Other viral agents as the cause of diseases classified elsewhere; Z20.828 Contact with and (suspected) exposure to other viral communicable diseases; Z88.0 Allergy status to penicillin; Z88.2 Allergy status to sulfonamides; Z88.8 Allergy status to other drugs, medicaments and biological substances
CPT/HCPCS: 99283; C9803

== ENCOUNTER 2020-04-27 14:36 | Emergency (ER) | payer BC, OTHER ==
[~2020-04-27] VITALS: Ht 154.9 cm; Wt 79.8 kg
[~2020-04-27 14:36] MED LIST changes: +PRENA1 CHEW TA1.4 MG PO
[2020-04-27] MEDS ORDERED: IRON18 MG PO (15:13)
== END 2020-04-27 19:47 | disposition home or self-care (01) ==
LOC: ED 14:36
DX: O99.891 Other specified diseases and conditions complicating pregnancy (principal); D13.4 Benign neoplasm of liver; R10.11 Right upper quadrant pain; Z3A.26 26 weeks gestation of pregnancy; Z88.0 Allergy status to penicillin; Z88.2 Allergy status to sulfonamides; Z88.8 Allergy status to other drugs, medicaments and biological substances
CPT/HCPCS: 76705; 80053; 81001; 85025; 99284-25

== ENCOUNTER 2020-07-09 02:32 | Inpatient (IN) | payer BC, OTHER ==
[~2020-07-09] VITALS: Ht 157.5 cm; Wt 85.7 kg
[~2020-07-09 02:32] MED LIST changes: +IRON18 MG PO
--- NOTE | 2020-07-09 09:29 | PR ---
[facility] [address] [facility] [place], [place] [address] Signed Progress Notes IP Datetime Report Generated by CPN: 07/09/2020 09:29 PROGRESS NOTES: [id number] Impression: Normal Progression of Labor; Reassuring Heart Rate Procedures: Artificial ROM Plan: Continue Present Management; Anticipate Vaginal Delivery Informed Consent Obtain: Vaginal Delivery Other Informed Consents: Meconium VITAL SIGNS: [id number] Vital Signs: Reviewed; Within Normal Limits EXAM: [id number] Dilatation: 4.0 Effacement: 80 Station: -2 Contractions: q 5-6 min MEMBRANES: [id number] Comments: Pt seen and examined. Doing well. Comfortable w/ epidural. FETUS A: [id number] FHR Baseline: 120 Variability: Moderate 6-25bpm Accelerations: 15X15 Decelerations: None FHR Category: Category I Presentation: Vertex Comments on Fetus A: No evidence of metabolic acidosis FETUS B: [id number] Signing Physician: Trevor Kelly DO Copies: ~ *Electronically Signed* 07/09/20 0929 TREVOR KELLY DO PATIENT NAME: ARA AMAYA PROGRESS NOTE DATE OF : [birth year] PHYSICIAN: TREVOR KELLY DO RPT #: [id number] REPORT IS CONFIDENTIAL AND NOT TO BE RELEASED WITHOUT AUTHORIZATION
--- NOTE | 2020-07-09 12:50 | PR ---
[facility] [address] [place], [place] [address] Signed Progress Notes IP Datetime Report Generated by CPN: 07/09/2020 12:50 PROGRESS NOTES: [id number] Impression: Normal Progression of Labor; Reassuring Heart Rate Procedures: Sterile Vag Exam Plan: Continue Present Management; Anesthesia Consult Informed Consent Obtain: Vaginal Delivery Other Informed Consents: Meconium VITAL SIGNS: [id number] Vital Signs: Reviewed; Within Normal Limits EXAM: [id number] Dilatation: 6.0 Effacement: 80 Station: -2 Contractions: q 5-6 min MEMBRANES: [id number] Comments: Pt seen and examined. Pt reports feeling moderate/severe anxiety and reports symptoms "are the ones I get all the time." C/O "the jitters," rapid heart rate, and anxiety. States that inability to move her legs due to epidural is distressing. No shortness of breath. Exam normal. Discussed symptoms of labor including shivering. Anesthesia will evaluate FETUS A: [id number] FHR Baseline: 120 Variability: Moderate 6-25bpm Accelerations: 15X15 Decelerations: None FHR Category: Category I Presentation: Vertex Comments on Fetus A: No evidence of metabolic acidosis FETUS B: [id number] Signing Physician: Trevor Kelly DO Copies: ~ *Electronically Signed* 07/09/20 8734 TRVEOR KELLY DO PATIENT NAME: ARA AMAYA PROGRESS NOTE DATE OF : [birth year] PHYSICIAN: TREVOR KELLY DO RPT #: [id number] REPORT IS CONFIDENTIAL AND NOT TO BE RELEASED WITHOUT AUTHORIZATION
--- NOTE | 2020-07-09 13:28 | PR ---
[facility] [address] [facility] [place], [place] [address] Signed Progress Notes IP Datetime Report Generated by SUKHWINDER: 07/09/2020 13:28 PROGRESS NOTES: [id number] Impression: Normal Progression of Labor Procedures: Intrauterine Pressure Catheter Plan: Continue Present Management; Anesthesia Consult Informed Consent Obtain: Vaginal Delivery Other Informed Consents: Meconium VITAL SIGNS: [id number] Vital Signs: Reviewed; Within Normal Limits EXAM: [id number] Dilatation: 6.0 Effacement: 80 Station: -2 Contractions: q 5-6 min MEMBRANES: [id number] Comments: Pt seen and examined. Doing well. IUPC placed w/out difficulty. Pt resting on her side. Will monitor closely FETUS A: [id number] FHR Baseline: 120 Variability: Moderate 6-25bpm Accelerations: 15X15 Decelerations: None FHR Category: Category I Presentation: Vertex Comments on Fetus A: No evidence of metabolic acidosis FETUS B: [id number] Signing Physician: Trevor Kelly DO Copies: ~ *Electronically Signed* 07/09/20 1328 TREVOR KELLY DO PATIENT NAME: ARA AMAYA PROGRESS NOTE DATE OF : [birth year] PHYSICIAN: TREVOR KELLY DO RPT #: [id number] REPORT IS CONFIDENTIAL AND NOT TO BE RELEASED WITHOUT AUTHORIZATION
--- NOTE | 2020-07-09 17:39 | PR ---
[facility] [address] [place], [place] [address] Signed Progress Notes IP Datetime Report Generated by SUKHWINDER: 07/09/2020 17:39 PROGRESS NOTES: [id number] Impression: Normal Progression of Labor; Reassuring Heart Rate Procedures: Sterile Vag Exam Plan: Continue Present Management; Augmentation Informed Consent Obtain: Vaginal Delivery Other Informed Consents: Meconium VITAL SIGNS: [id number] Vital Signs: Reviewed; Within Normal Limits EXAM: [id number] Dilatation: 6.0 Effacement: 80 Station: -2 Contractions: q 5-6 min MEMBRANES: [id number] Comments: Pt seen and examined. Doing well. CTXs much improved w/ pitocin augmentation. FHT reassuring. Now 8cm. Some asynclitism noted. Will continue w/ frequent position changes. Anticipate . All quesitons answered. FETUS A: [id number] FHR Baseline: 120 Variability: Moderate 6-25bpm Accelerations: 15X15 Decelerations: None FHR Category: Category I Presentation: Vertex Comments on Fetus A: No evidence of metabolic acidosis FETUS B: [id number] Signing Physician: Trevor Kelly DO Copies: ~ *Electronically Signed* 07/09/20 1854 TREVOR KELLY DO PATIENT NAME: ARA AMAYA PROGRESS NOTE DATE OF : [birth year] PHYSICIAN: TREVOR KELLY #: [id number] REPORT IS CONFIDENTIAL AND NOT TO BE RELEASED WITHOUT AUTHORIZATION
--- NOTE | 2020-07-09 17:43 | PR ---
[facility] [address] [place], [place] [address] Signed Progress Notes IP Datetime Report Generated by CPN: 07/09/2020 17:43 PROGRESS NOTES: [id number] Impression: Normal Progression of Labor; Reassuring Heart Rate Procedures: Sterile Vag Exam Plan: Continue Present Management; Augmentation Informed Consent Obtain: Vaginal Delivery Other Informed Consents: Meconium VITAL SIGNS: [id number] Vital Signs: Reviewed; Within Normal Limits EXAM: [id number] Dilatation: 6.0 Effacement: 80 Station: -2 Contractions: q 5-6 min MEMBRANES: [id number] Comments: Difficult time tracing fetus. FSE placed without difficulty after discussing w/ pt. All questions answered. Will monitor closely. Normal glucose levels reviewed w/ RN FETUS A: [id number] FHR Baseline: 120 Variability: Moderate 6-25bpm Accelerations: 15X15 Decelerations: None FHR Category: Category I Presentation: Vertex Comments on Fetus A: No evidence of metabolic acidosis FETUS B: [id number] Signing Physician: Trevor Kelly DO Copies: ~ *Electronically Signed* 07/09/20 6932 TREVOR KELLY DO PATIENT NAME: ARA AMAYA PROGRESS NOTE DATE OF : [birth year] PHYSICIAN: TREVOR KELLY DO RPT #: [id number] REPORT IS CONFIDENTIAL AND NOT TO BE RELEASED WITHOUT AUTHORIZATION
--- NOTE | 2020-07-10 12:04 | PR ---
[facility] [address] [facility] [place], [place] [address] Signed PP Progress Notes Datetime Report Generated by CPN: 07/10/2020 12:04 SUBJECTIVE: [id number] Pain: Within Normal Limits Nausea/Vomiting: Denies Flatus: Yes Bowel Movement: No Vital Signs: [id number] Vital Signs: Reviewed Cardiovascular: Normal Respiratory: Normal Abdomen/Uterus: Normal Lochia: Normal Vulva/Perineum: Not Done Breasts: Not Done CVA Tenderness: Normal Extremities: Normal Progress: Normal Exam Comments: Fundus firm U-2 nontender IMPRESSION/PLAN/PROCEDURES: [id number] Impression: Normal Progression Plan: Continue Present Management Progress Notes: Pt seen and examined. Doing well. Ambulating, voiding, and tolerating full diet. well. No fevers/chills or other concerns. Anticipate d/c home tomorrow. Signing Physician: Trevor Kelly DO Copies: ~ *Electronically Signed* 07/10/20 1204 TREVOR KELLY DO PATIENT NAME: ARA AMAYA PROGRESS NOTE DATE OF : [birth year] PHYSICIAN: TREVOR KELLY DO [facility] #: [id number] REPORT IS CONFIDENTIAL AND NOT TO BE RELEASED WITHOUT AUTHORIZATION
--- NOTE | 2020-07-11 08:51 | PR ---
[facility] [address] [facility] [place], [place] [address] Signed PP Progress Notes Datetime Report Generated by N: 07/11/2020 08:51 SUBJECTIVE: [id number] Pain: Within Normal Limits Nausea/Vomiting: Denies Flatus: Yes Bowel Movement: Yes Vital Signs: [id number] Vital Signs: Reviewed Cardiovascular: Normal Respiratory: Normal Abdomen/Uterus: Normal Lochia: Normal Vulva/Perineum: Not Done Breasts: Not Done CVA Tenderness: Normal Extremities: Normal Incision: Not Applicable Progress: Normal Exam Comments: Fundus firm U-2 nontender IMPRESSION/PLAN/PROCEDURES: [id number] Impression: Normal Progression Plan: Discharge Progress Notes: Pt doing well. Ambulating, voiding, and tolerating full diet. Pain and lochia minimal. well. No abd pain or other concerns. Desires d/c home. Reviewed d/c instructions in detail and plans for f/u w/ Dr. Saucedo regarding hepatic masses (adenoma vs fatty sparing). Will review w/ Dr. Saucedo in the near future, but likely will further investigate w/ MRI w/ contrast as recommended by radiology. All questions answered. Signing Physician: Trevor Cordon DO Copies: ~ *Electronically Signed* 07/11/20 0851 TREVOR CORDON DO PATIENT NAME: ARA AMAYA PROGRESS NOTE DATE OF : [birth year] PHYSICIAN: TREVOR CORDON DO RPT #: [id number] REPORT IS CONFIDENTIAL AND NOT TO BE RELEASED WITHOUT AUTHORIZATION
== END 2020-07-11 12:15 | disposition home or self-care (01) | DRG 807 ==
LOC: FBC 02:32
PROVIDERS: ADMIT Obstetrics & Gynecology; ATTEND Obstetrics & Gynecology
PROC: 10E0XZZ Delivery of Products of Conception, External Approach (ICD-10-PCS; principal; 2020-07-09)
PROC: 0KQM0ZZ Repair Perineum Muscle, Open Approach (ICD-10-PCS; 2020-07-09)
PROC: 10907ZC Drainage of Amniotic Fluid, Therapeutic from Products of Conception, Via Natural or Artificial Opening (ICD-10-PCS; 2020-07-09)
PROC: 10H07YZ Insertion of Other Device into Products of Conception, Via Natural or Artificial Opening (ICD-10-PCS; 2020-07-09)
PROC: 00HU33Z Insertion of Infusion Device into Spinal Canal, Percutaneous Approach (ICD-10-PCS; 2020-07-09)
PROC: 3E0R3BZ Introduction of Anesthetic Agent into Spinal Canal, Percutaneous Approach (ICD-10-PCS; 2020-07-09)
PROC: 0UQMXZZ Repair Vulva, External Approach (ICD-10-PCS; 2020-07-09)
DX: O24.420 Gestational diabetes mellitus in childbirth, diet controlled (principal); Z37.0 Single live birth; Z3A.39 39 weeks gestation of pregnancy; O76 Abnormality in fetal heart rate and rhythm complicating labor and delivery; O69.1XX0 Labor and delivery complicated by cord around neck, with compression, not applicable or unspecified; O77.0 Labor and delivery complicated by meconium in amniotic fluid; O70.1 Second degree perineal laceration during delivery; O71.82 Other specified trauma to perineum and vulva; O99.344 Other mental disorders complicating childbirth; F41.9 Anxiety disorder, unspecified; F32.9 Major depressive disorder, single episode, unspecified; O99.892 Other specified diseases and conditions complicating childbirth; D13.4 Benign neoplasm of liver; Z86.16 Personal history of COVID-19; Z88.2 Allergy status to sulfonamides; Z88.1 Allergy status to other antibiotic agents
CPT/HCPCS: 01960; 36415; 85027; A9270; J2001; J2590; J2795; J7042; J7121

== ENCOUNTER 2021-03-02 05:59 | Day surgery (SDC) | payer BC, OTHER ==
[~2021-03-02] VITALS: Ht 152.4 cm; Wt 72.7 kg
--- NOTE | 2021-03-02 06:18 | NUR ---
pt was swabbed for covid 19
--- NOTE | 2021-03-02 10:12 | NUR ---
[facility] PACU SLEEPY. 1005 AWAKENS TO VERBAL STIMULI, THEN FALLS BACK TO SLEEP. NO C/O'S. 1012 RESTING .REU.
--- NOTE | 2021-03-02 11:15 | NUR ---
PT USES CALL LIGHT TO ALERT DS STAFF OF URGE TO VOID. PT SITS AT SIDE OF BED PRIOR TO STANDING, DENIES ANY NAUSEA OR DIZZINESS WITH POSITION CHANGE. PT AMBULATES WITH STEADY GAIT TO BATHROOM, ABLE TO VOID APPROX 300 MLS RED URINE WITH NO PROBLEMS. PT STATES SHE IS ON HER MENSTRUAL CYCLE AND IS PROVIDED ADDITIONAL PAD. PT BACK TO DS RM 12 AND PROVIDED PUDDING AND APPLESAUCE PER REQUEST. CALL LIGHT WITHIN REACH, PT MOTHER AND BABY AT BEDSIDE.
[2021-03-02] MEDS ORDERED: HYDROCODONE-ACE15 M3 PO (12:07)
--- NOTE | 2021-03-02 12:37 | OR ---
[facility] [address] [place], [place] [address] Signed DATE OF OPERATION: 03/02/2021 SURGEON: Josiah Rodriguez MD PREOPERATIVE DIAGNOSIS: Chronic tonsillitis. POSTOPERATIVE DIAGNOSIS: Chronic tonsillitis. PROCEDURE: Tonsillectomy. ANESTHESIA: General orotracheal. FRONT DESK AUXILIARY, Samantha. PREOPERATIVE HISTORY: Ara is a 25-year-old young lady with chronic tonsillitis. She has had distorted smell and taste for several months. Exam otherwise unremarkable except for enlarged cryptic tonsils. She is taken to the operating room for the above-mentioned procedures. OPERATIVE PROCEDURE AND FINDINGS: After informed consent, the patient was taken to the operating room, placed in supine position where general orotracheal anesthesia was induced. The patient and procedure were verified. The patient was repositioned. McIvor mouthgag placed into suspension. Headlight exam of the pharynx showed markedly hypertrophic cryptic tonsils. The left tonsil was grasped with a tenaculum, retracted medially and removed from its fossa with mucosal sparing incisions with Coblation. The field was dry after the procedure, same procedure on the right tonsil, tonsils were sent to pathology. The mouthgag was released for several minutes. Reinspection showed no bleeding points. The pharynx was suctioned clear of blood and secretions. Mouthgag was removed. The patient was awakened, extubated, transported to the recovery room in good condition. No complications. BLOOD LOSS: Minimal. SPECIMEN: To pathology. Electronically Signed By: JOSIAH RODRIGUEZ MD 03/02/21 1237 PATIENT NAME: ARA AMAYA OPERATIVE REPORT DATE OF : [birth year] REPORT #: [id number] PHYSICIAN: JOSIAH RODRIGUEZ MD PCP: YELENA MUJICA MD REPORT IS CONFIDENTIAL AND NOT TO BE RELEASED WITHOUT AUTHORIZATION [address] [address] Signed DRAINS: No drains. Josiah Rodriguez MD /MODL /[id number] Copies: ~ Electronically Signed By: JOSIAH RODRIGUEZ MD 03/02/21 1237 PATIENT NAME: ARA AMAYA OPERATIVE REPORT DATE OF : [birth year] REPORT #: [id number] PHYSICIAN: JOSIAH RODRIGUEZ MD PCP: YELENA MUJICA MD REPORT IS CONFIDENTIAL AND NOT TO BE RELEASED WITHOUT AUTHORIZATION
--- NOTE | 2021-03-02 16:13 | NUR ---
LATE ENTRY 1040: PATIENT BACK IN DAY SURGERY ROOM FROM PACU. C/O THROAT FEELING "SORE". DECLINES PAIN MEDICATION AT THIS TIME. DROWSY. VS CHECKED. IV SITE WNL. SCDs ON. GIVEN ICE WATER. MOTHER IN [place] AT BEDSIDE WITH PATIENT'S BABY. CALL LIGHT WITHIN REACH.
--- NOTE | 2021-03-02 16:16 | NUR ---
1200: VS CHECKED. PATIENT REQUESTS SOMETHING FOR PAIN. MEDICATED FOR PAIN WITH LORTAB ELIXIR. PATIENT DRESSED INDEPENDENTLY. 1225: DISCHARGE INSTRUCTIONS GIVEN TO PATIENT. IV DC'D WNL. TIP INTACT. DRESSING APPLIED. PATIENT DISCHARGED TO HOME WITH MOTHER IN LAW AND VIA WHEELCHAIR.
== END 2021-03-02 12:26 | disposition home or self-care (01) ==
LOC: OPS 05:59 → DS 06:02 → OPS 10:30
PROVIDERS: ATTEND Otolaryngology
PROC: 0CTPXZZ Resection of Tonsils, External Approach (ICD-10-PCS; principal; 2021-03-02 10:30)
DX: J35.01 Chronic tonsillitis (principal); R59.9 Enlarged lymph nodes, unspecified; R43.2 Parageusia; Z88.1 Allergy status to other antibiotic agents; Z20.822 Contact with and (suspected) exposure to COVID-19
CPT/HCPCS: 00170; 80048; 84703; 85025; C9803; J0330; J1100; J2001; J2250; J2405; J2704; J7121; U0003

== ENCOUNTER 2021-04-04 15:42 | Emergency (ER) | payer BC, OTHER ==
[~2021-04-04] VITALS: Ht 152.4 cm; Wt 70.3 kg
[~2021-04-04 15:42] MED LIST changes: +HYDROCODONE-ACE15 M3 PO
--- OUTSIDE RECORDS SUMMARY | 2021-04-04 15:44 | XMS ---
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 Chau has no Care Guidelines for this patient. ERichard VISIT COUNT (12 MO.) [address] [place] TOTAL 3 NOTE: Visits indicate total known visits. ED/C VISIT TRACKING (12 MO.) [facility] COMPLAINT: - LOSS OF APPETITE 03/10/2021 20:17 [facility] [place] TYPE: Emergency DIAGNOSES: - BLOODY NOSE - Postprocedural hemorrhage of a respiratory system organ or structure following a respiratory system procedure 04/27/2020 14:37 [facility] [place] TYPE: Emergency COMPLAINT: - FLANK/ABD PAIN DIAGNOSES: - Other specified diseases and conditions complicating - Allergy status to other drugs, medicaments and biological substances - 26 weeks gestation of - Allergy status to sulfonamides - Other specified diseases and conditions complicating - Benign neoplasm of liver - Allergy status to penicillin - Right upper quadrant pain - Allergy status to other drugs, medicaments and biological substances - Allergy status to sulfonamides INPATIENT VISIT TRACKING (12 MO.) 07/09/2020 02:[address] [facility] [place] TYPE: [facility] COMPLAINT: - INDUCTION DIAGNOSES: - Labor and delivery complicated by cord around neck, with compression, not applicable or unspecified - Allergy status to sulfonamides - Gestational diabetes mellitus in childbirth, diet controlled - Benign neoplasm of liver - Second degree perineal laceration during delivery - Labor and delivery complicated by meconium in amniotic fluid - Other specified trauma to perineum and vulva - Second degree perineal laceration during delivery - Gestational diabetes mellitus in , diet controlled - Allergy status to other antibiotic agents - Other specified diseases and conditions complicating childbirth - Labor and delivery complicated by meconium in amniotic fluid - Benign neoplasm of liver - Other mental disorders complicating childbirth - 39 weeks gestation of - Abnormality in heart rate and rhythm complicating labor and delivery - Allergy status to other antibiotic agents - Allergy status to sulfonamides - Abnormality in heart rate and rhythm complicating labor and delivery - Major depressive disorder, single episode, unspecified - Other specified trauma to perineum and vulva - Anxiety disorder, unspecified - Other specified diseases and conditions complicating childbirth - Labor and delivery complicated by cord around neck, with compression, not applicable or unspecified - Single live - Single live - 39 weeks gestation of - Gestational diabetes mellitus in childbirth, diet controlled - Anxiety disorder, unspecified - Other mental disorders complicating childbirth - Major depressive disorder, single episode, unspecified [email or web address]
[2021-04-04] MEDS ORDERED: ONDANSETRON ODT4 MG PO (16:50)
[2021-04-04] MEDS ORDERED: DICYCLOMINE HCL10 MG PO (16:50)
== END 2021-04-04 17:10 | disposition home or self-care (01) ==
LOC: ED 15:42
DX: K52.9 Noninfective gastroenteritis and colitis, unspecified (principal); Z88.0 Allergy status to penicillin; Z88.8 Allergy status to other drugs, medicaments and biological substances; Z88.2 Allergy status to sulfonamides
CPT/HCPCS: 99283